=== PATIENT | female | born 1980 | race Caucasian/White ===

== ENCOUNTER 2016-11-27 15:52 | Emergency (ER) | payer MEDICARE, OTHER ==
[~2016-11-27] VITALS: Ht 154.9 cm; Wt 70.3 kg
[~2016-11-27 15:52] MED LIST: CLON0.5T3 PO; LAMO100T PO; QUET1TAB PO; QUET400T4 PO; TRAZ50TA15 PO
[2016-11-27 16:22] VITALS: BP 111/69
[2016-11-27] MEDS ORDERED: predniSONE 20 MG TABLET PO ONE (16:30)
[2016-11-27] MEDS ORDERED: PRED50TA PO (16:58)
[2016-11-27] MEDS ORDERED: PSEU120T58 PO (16:58)
--- NOTE | 2016-11-27 16:59 | PHYS DOC ---
Past Medical History Past Medical History: Anxiety, Bipolar, Depression Past Surgical History: Appendectomy, , Other Additional Past Surgical Histo: teeth Alcohol Use: None Drug Use: None Adult General Chief Complaint Chief Complaint: OTHER COMPLAINTS HPI HPI Patient is a 36 year old female with history of anxiety and bipolar and depression who presents today with multiple complaints. Patient state on Sunday this week she spent the night in a hotel and has bed bugs. Patient states she also has coughing nasal congestion and bilateral ear pain since Sunday. Patient denies any fever. Review of Systems Review of Systems Constitutional: See history of present illness Eyes: Denies change in visual acuity, redness, or eye pain [] HENT: nasal congestion bilateral ear pain Respiratory: cough Cardiovascular: No additional information not addressed in HPI [] GI: Denies abdominal pain, nausea, vomiting, bloody stools or diarrhea [] : Denies dysuria or hematuria [] Musculoskeletal: Denies back pain or joint pain [] Integument: rash Neurologic: Denies headache, focal weakness or sensory changes [] Endocrine: Denies polyuria or polydipsia [] Current Medications Current Medications Current Medications Medications (Trade) Dose Ordered Sig/Oskar Start Time Stop Time Status Last Admin Dose Admin Prednisone (Prednisone) 60 mg 1X ONCE 11/27/16 16:30 11/27/16 16:31 DC 11/27/16 16:31 60 MG Allergies Allergies Allergies Coded Allergies Type Severity Reaction Last Updated Verified propoxyphene Allergy Intermediate Patient denies allergy to acetaminophen 08/31 Yes tramadol Allergy Intermediate 09/01/15 Yes diphenhydramine Adverse Reaction Intermediate 09/01/15 Yes ondansetron Adverse Reaction Intermediate VOMITING 09/01/15 Yes Physical Exam Physical Exam Constitutional: Well developed, well nourished, no acute distress, non-toxic appearance. [] HENT: Normocephalic, atraumatic, bilateral external ears normal, oropharynx moist, no oral exudates, nose normal. [] Eyes: PERRLA, EOMI, conjunctiva normal, no discharge. [] Neck: Normal range of motion, no tenderness, supple, no stridor. [] Cardiovascular:Heart rate regular rhythm, no murmur [] Lungs & Thorax: Bilateral breath sounds clear to auscultation [] Abdomen: Bowel sounds normal, soft, no tenderness, no masses, no pulsatile masses. [] Skin: Bilateral lower extremities, extremities and face with trace amount of erythematous macular rash suspicious of bad backs. Back: No tenderness, no CVA tenderness. [] Extremities: No tenderness, no cyanosis, no clubbing, ROM intact, no edema. [] Neurologic: Alert and oriented X 3, normal motor function, normal sensory function, no focal deficits noted. [] Psychologic: Affect normal, judgement normal, mood normal. [] Current Patient Data Vital Signs Vital Signs Date Time Temp Pulse Resp B/P (MAP) Pulse Ox O2 Delivery O2 Flow Rate FiO2 11/27/16 16:22 98.4 87 20 99 Room Air 98.4 EKG EKG [] Radiology/Procedures Radiology/Procedures [] Course & Med Decision Making Course & Med Decision Making Pertinent Labs and Imaging studies reviewed. (See chart for details) Patient has bed bug rash from spending the night at a hotel as well as upper respiratory infection symptoms including coughing and nasal congestion. She was discharged with prednisone, pseudoephedrine and provided a supervisor laboratory to follow-up with in 1-2 weeks. She refused to take Benadryl stating she is allergic to it. Dragon Disclaimer Dragon Disclaimer This electronic medical record was generated, in whole or in part, using a voice recognition dictation system. Departure Departure Impression: Primary Impression: Bedbug bite Additional Impressions: Upper respiratory infection Otalgia of right ear Disposition: 01 HOME, SELF-CARE Condition: STABLE Referrals: NO PCP (PCP) TRAVIS PERAZA MD follow up with your doctor or the provided doctor in 2 weeks Patient Instructions: Bedbugs, [id number], Otalgia-Brief, Upper Respiratory Infection, Adult, [id number] Additional Instructions: You were seen with a rash suspicious of bedbugs. Maintain very good hygiene. Take the prednisone as prescribed. Consider taking a decongestant to help with upper respiratory infection symptoms including congestion. Provided a supervisor laboratory to follow-up with in 2 weeks. You can also follow-up with your own doctor. Scripts Pseudoephedrine Hcl (PSEUDOEPHEDRINE) 120 Mg Tablet.er 1 TAB PO BID, #20 TAB Prov: MUTUNGA,PRISCILLA DYE WORKER 11/27/16 Prednisone (PREDNISONE) 50 Mg Tablet 1 TAB PO DAILY, #4 TAB Prov: MUTUNGA,PRISCILLA DYE WORKER 11/27/16 Problem Qualifiers Primary Impression: Bedbug bite Encounter type: initial encounter Qualified Codes: W57.XXXA - Bitten or stung by nonvenomous insect and other nonvenomous arthropods, initial encounter Additional Impressions: Upper respiratory infection URI type: unspecified URI Qualified Codes: J06.9 - Acute upper respiratory infection, unspecified PRISCILLA CRAIN DYE WORKER Nov 27, 2016 16:59
== END 2016-11-27 17:02 | disposition home or self-care (01) ==
LOC: ER 15:52
DX: S00.86XA Insect bite (nonvenomous) of other part of head, initial encounter (principal); S80.861A Insect bite (nonvenomous), right lower leg, initial encounter; S80.862A Insect bite (nonvenomous), left lower leg, initial encounter; J06.9 Acute upper respiratory infection, unspecified; H92.01 Otalgia, right ear; F31.9 Bipolar disorder, unspecified; Z88.5 Allergy status to narcotic agent; Z88.6 Allergy status to analgesic agent; Z88.8 Allergy status to other drugs, medicaments and biological substances; W57.XXXA Bitten or stung by nonvenomous insect and other nonvenomous arthropods, initial encounter; Y93.89 Activity, other specified; Y99.8 Other external cause status; Y92.89 Other specified places as the place of occurrence of the external cause
CPT/HCPCS: 99283; J7512